=== PATIENT | male | born 1970 | race Caucasian/White ===

== ENCOUNTER 2017-04-02 12:54 | Emergency (ER) | payer OTHER ==
[~2017-04-02] VITALS: Ht 175.3 cm; Wt 85.0 kg
[2017-04-02] MEDS ORDERED: LIDOCAINE HCL 1% 20ML VIAL (Pyxis) INJ MC ONE (13:15)
[2017-04-02] MEDS ORDERED: BACITRACIN ZINC OINT UDPKT TOP ONE (13:15)
[2017-04-02] MEDS ORDERED: IBUPROFEN 600MG TABLET PO ONE (15:15)
[2017-04-02 17:23] VITALS: BP 112/55
== END 2017-04-02 17:30 | disposition home or self-care (01) ==
LOC: ER 12:54
DX: S01.01XA Laceration without foreign body of scalp, initial encounter (principal); W22.8XXA Striking against or struck by other objects, initial encounter; Y93.89 Activity, other specified; Y92.481 Parking lot as the place of occurrence of the external cause
CPT/HCPCS: 12002; 70450; 99284; J3490; X7700; Z7610

== ENCOUNTER 2017-04-04 08:20 | Emergency (ER) | payer OTHER ==
[~2017-04-04] VITALS: Ht 177.8 cm; Wt 69.0 kg
[2017-04-04 10:08] VITALS: BP 119/66
== END 2017-04-04 10:11 | disposition home or self-care (01) ==
LOC: ER 08:20
DX: S01.81XD Laceration without foreign body of other part of head, subsequent encounter (principal); X58.XXXD Exposure to other specified factors, subsequent encounter; Y93.89 Activity, other specified; Y99.8 Other external cause status; Y92.89 Other specified places as the place of occurrence of the external cause
CPT/HCPCS: 99283